=== PATIENT | female | born 1990 | race Caucasian/White ===

== ENCOUNTER 2018-01-23 07:47 | Emergency (ER) | payer SELFPAY ==
[2018-01-23 08:23] LABS: Urine Blood 3+ (NEG); Urine Glucose NEGATIVE (NEG); Urine Protein NEGATIVE (NEG); Urine pH 5.5 (5.0-7.0)
--- NOTE | 2018-01-23 08:53 | EDPHYS ---
Physician Documentation [facility] Name: Deja Carroll Age: 27 yrs Sex: Female : 1990 Arrival Date: 01/23/2018 Time: 07:52 Bed 5 Private MD: None, None ED Physician Gael Singh HPI: 01/23 08:49 This 27 yrs old Female presents to ER via Ambulatory with complaints of Sore gs Throat. 08:49 The patient presents with sore throat. The patient describes throat pain as scratchy. gs Onset: The symptoms/episode began/occurred 2 day(s) ago. Severity of symptoms: At their worst the symptoms were mild, in the emergency department the symptoms are unchanged. Modifying factors: Patient's oral intake status: good. Associated signs and symptoms: Pertinent positives: fever, flu-like symptoms, malaise. The patient has experienced similar episodes in the past, a few times. 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 - Social history:: Smoking status: Patient uses tobacco products, smokes one-half pack cigarettes per day. - Ebola Screening: : No symptoms or risks identified at this time. ROS: 08:49 All other systems are negative. gs Exam: 08:49 Head/Face: Normocephalic, atraumatic. Eyes: Pupils equal round and reactive to light, gs extra-ocular motions intact. Lids and lashes normal. Conjunctiva and sclera are non-icteric and not injected. Cornea within normal limits. Periorbital areas with no swelling, redness, or edema. ENT: Nares patent. No nasal discharge, no septal abnormalities noted. Tympanic membranes are normal and external auditory canals are clear. Oropharynx with no redness, swelling, or masses, exudates, or evidence of obstruction, uvula midline. Mucous membranes moist. Neck: Trachea midline, no thyromegaly or masses palpated, and no cervical lymphadenopathy. Supple, full range of motion without nuchal rigidity, or vertebral point tenderness. No Meningismus. Chest/axilla: Normal chest wall appearance and motion. Nontender with no deformity. No lesions are appreciated. Cardiovascular: Regular rate and rhythm with a normal S1 and S2. No gallops, murmurs, or rubs. Normal PMI, no JVD. No pulse deficits. Respiratory: Lungs have equal breath sounds bilaterally, clear to auscultation and percussion. No rales, rhonchi or wheezes noted. No increased work of breathing, no retractions or nasal flaring. Abdomen/GI: Soft, non-tender, with normal bowel sounds. No distension or tympany. No guarding or rebound. No evidence of tenderness throughout. Back: No spinal tenderness. No costovertebral tenderness. Full range of motion. Skin: Warm, dry with normal turgor. Normal color with no rashes, no lesions, and no evidence of cellulitis. MS/ Extremity: Pulses equal, no cyanosis. Neurovascular intact. Full, normal range of motion. Neuro: Awake and alert, GCS 15, oriented to person, place, time, and situation. Cranial nerves II-XII grossly intact. Motor strength 5/5 in all extremities. Sensory grossly intact. Cerebellar exam normal. Normal gait. 08:49 Constitutional: The patient appears alert, awake. Vital Signs: 07:55 Pulse 75; Resp 16; Temp 97.5(O); Pulse Ox 100% on R/A; Weight 72.57 kg; Height 6 ft. 0 la1 in. (182.88 cm); 07:58 BP 101 / 75; la1 09:00 BP 101 / 69; Pulse 72; Resp 16; Pulse Ox 100% ; bp 07:55 Body Mass Index 21.70 (72.57 kg, 182.88 cm) la1 MDM: 08:06 Patient medically screened. 08:49 Differential diagnosis: group A strep tonsillitis, influenza, pharyngitis, viral gs syndrome. Data reviewed: vital signs, nurses notes. Response to treatment: the patient's symptoms have markedly improved after treatment, and as a result, I will discharge patient. 01/23 08:06 Order name: Flu gs 01/23 08:06 Order name: Strep; Complete Time: 08:34 gs 01/23 08:17 Order name: Urine Dipstick--Ancillary (enter results); Complete Time: 08:34 bd 01/23 08:17 Order name: Urine --Ancillary (enter results); Complete Time: 08:34 bd 01/23 08:28 Order name: Throat Culture EDMS Administered Medications: No medications were administered Disposition: 01/23/18 08:52 Discharged to Home. Impression: Viral infection, unspecified. - Condition is Stable. - Discharge Instructions: Viral Respiratory Infection, [id number]. - Medication Reconciliation Form, Thank You Letter, Antibiotic Education, Prescription Opioid Use form. - Follow up: Private Physician; When: 2 - 3 days; Reason: Re-evaluation by your physician. Signatures: Dispatcher [employer] EDMS Jamar Marc RN RN la1 Gael Singh MD MD gs Moo Anglin RN RN bp Corrections: (The following items were deleted from the chart) 09:11 08:52 01/23/2018 08:52 Discharged to Home. Impression: Viral infection, unspecified. bp Condition is Stable. Forms are Medication Reconciliation Form, Thank You Letter, Antibiotic Education, Prescription Opioid Use. Follow up: Private Physician; When: 2 - 3 days; Reason: Re-evaluation by your physician.
--- NOTE | 2018-01-23 08:53 | ER ---
Nurse's Notes [facility] Name: Deja Carroll Age: 27 yrs Sex: Female : 1990 Arrival Date: 01/23/2018 Time: 07:52 Bed 5 Private MD: None, None Diagnosis: Viral infection, unspecified Presentation: 01/23 07:53 Presenting complaint: Patient states: Abdominal pain, throat pain, body aches worse la1 today. Transition of care: patient was not received from another setting of care. Onset of symptoms was January 23, 2018. Risk Assessment: Do you want to hurt yourself or someone else? Patient reports no desire to harm self or others. Initial Sepsis Screen: Does the patient meet any 2 criteria? No. Patient's initial sepsis screen is negative. Does the patient have a suspected source of infection? No. Patient's initial sepsis screen is negative. Care prior to arrival: None. 07:53 Method Of Arrival: Ambulatory la1 07:53 Acuity: MARIE 3 la1 Triage Assessment: 07:55 General: Appears in no apparent distress. comfortable, Behavior is calm, cooperative, bp appropriate for age. Pain: Complains of pain in neck. GI: No signs and/or symptoms were reported involving the gastrointestinal system. 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 - Social history:: Smoking status: Patient uses tobacco products, smokes one-half pack cigarettes per day. - Ebola Screening: : No symptoms or risks identified at this time. Screenin:55 Abuse screen: Denies threats or abuse. Denies injuries from another. Nutritional bp screening: No deficits noted. Tuberculosis screening: No symptoms or risk factors identified. Fall Risk None identified. Assessment: 07:57 General: Appears in no apparent distress. comfortable, Behavior is calm, cooperative, bp appropriate for age. Pain: Complains of pain in neck. Neuro: Level of Consciousness is awake, alert, obeys commands, Oriented to person, place, time, situation, Appropriate for age. Cardiovascular: No deficits noted. Respiratory: Airway is patent Respiratory effort is even, unlabored, Respiratory pattern is regular, symmetrical. GI: Bowel sounds present X 4 quads. Abd is soft X 4 quads. : No signs and/or symptoms were reported regarding the genitourinary system. EENT: No deficits noted. Derm: No deficits noted. Musculoskeletal: Circulation, motion, and sensation intact. Range of motion: intact in all extremities. 09:08 Reassessment: PT D/C HOME AMBULATORY, DX WITH VIRAL URI. bp Vital Signs: 07:55 Pulse 75; Resp 16; Temp 97.5(O); Pulse Ox 100% on R/A; Weight 72.57 kg; Height 6 ft. 0 la1 in. (182.88 cm); 07:58 BP 101 / 75; la1 09:00 BP 101 / 69; Pulse 72; Resp 16; Pulse Ox 100% ; bp 07:55 Body Mass Index 21.70 (72.57 kg, 182.88 cm) la1 ED Course: 07:52 Patient arrived in ED. mr 07:52 None, None is Private Physician. mr 07:53 Moo Anglin, RN is Primary Nurse. bp 07:54 Triage completed. la1 07:54 Arm band placed on right wrist. la1 07:55 Gael Singh MD is Attending Physician. gs 07:55 Patient has correct armband on for positive identification. Bed in low position. Call bp light in reach. Side rails up X2. 09:09 No provider procedures requiring assistance completed. Patient did not have IV access bp during this emergency room visit. Administered Medications: No medications were administered Outcome: 08:52 Discharge ordered by . 09:09 Discharged to home ambulatory. bp 09:09 Condition: stable 09:09 Discharge instructions given to patient, Instructed on discharge instructions, follow up and referral plans. Demonstrated understanding of instructions, follow-up care. 09:11 Patient left the ED. bp Signatures: Rito Li mr MoniquebrandonJamar, RN RN la1 Gael Singh MD MD Moo Anglin, RN RN bp
== END 2018-01-23 09:11 | disposition home or self-care (01) ==
LOC: ER 07:47
DX: B34.9 Viral infection, unspecified (principal); Z91.040 Latex allergy status
CPT/HCPCS: 81003; 81025; 87070; 87081; 87804; 99281